=== PATIENT | female | born 1990 | race American Indian/Alaskan Native ===

== ENCOUNTER 2017-07-10 06:18 | Inpatient (IN) | payer MEDICAID ==
[2017-07-07 15:10] VITALS: BMI 23.5
[2017-07-10 07:10] LABS: HEMATOCRIT 37.8 % (34.0-47.0); MEAN CELL VOLUME 89.8 fl (81.0-99.0); MEAN CORPUSCULAR HEMOGLOBIN 29.1 pg (27.0-31.0); MEAN CORPUSCULAR HGB CONC 32.4 g/dL (33.0-37.0); RED CELL DISTRIBUTION WIDTH 13.6 % (11.5-14.5)
[2017-07-10] MEDS ORDERED: Bupivacaine 0.5% Inj(30mL) ONE (07:25)
[2017-07-10] MEDS ORDERED: Lactated Ringer's 1,000 ML IV ONE ×4 (07:30→12:35)
[2017-07-10] MEDS ORDERED: Lidocaine 4% (Laryng-O-Jet) Kit MM ONE (07:51)
[2017-07-10] MEDS ORDERED: Propofol 10 mg/ml Inj (20 ML) ONE (07:51)
[2017-07-10] MEDS ORDERED: Rocuronium 10 mg/ml (5 ml) ONE ×2 (07:51→10:58)
[2017-07-10] MEDS ORDERED: Midazolam 2 MG/2 ML VIAL ONE (07:51)
[2017-07-10] MEDS ORDERED: Succinylcholine 200 mg/10 ml Inj IV ONE (07:51)
[2017-07-10] MEDS ORDERED: Dexamethasone 4 mg/1 ml ONE (09:39)
[2017-07-10] MEDS ORDERED: Sodium Chloride 0.9% 1,000 ML IV ONE ×2 (10:00→11:45)
[2017-07-10] MEDS ORDERED: Desflurane Inhalation Anesthetic Liq (240 ml) ONE (10:37)
[2017-07-10] MEDS ORDERED: Methylene Blue 10 mg/mL(10ml) IV ONE (10:47)
[2017-07-10] MEDS ORDERED: Sevoflurane - Inhalation Anesthetic Liq (250 ml) ONE (11:00)
[2017-07-10] MEDS ORDERED: Neostigmine Methylsulfate 3mg/3ml Syringe IV ONE (12:28)
[2017-07-10] MEDS ORDERED: Naloxone 0.4 mg/ml Inj (Adult) IVP PRN (13:06)
[2017-07-10] MEDS: HYDROmorphone 0.5 mg/0.5 ml ISec IVP PRN ×4 (13:45→14:30)
[2017-07-10] MEDS ORDERED: Lactated Ringer's 1,000 ML IV SCH (14:30)
[2017-07-10] MEDS: ceFAZolin IV 1 gm in Dextrose 1 GM/50 ML BAG IVPB SCH (17:10)
[2017-07-10] MEDS: Lactated Ringer's 1,000 ML IV SCH (20:47)
[2017-07-11] MEDS: ceFAZolin IV 1 gm in Dextrose 1 GM/50 ML BAG IVPB SCH ×3 (00:41→16:29)
[2017-07-11 05:44] LABS: BASO % 0.3 % (0.0-2.0); EOS % 0.1 % (0.0-4.0); HEMATOCRIT 30.4 % (34.0-47.0); LYMPH # 1.4 K/uL (1.0-4.3); LYMPH % 10.9 % (20.0-40.0); MEAN CELL VOLUME 89.8 fl (81.0-99.0); MEAN CORPUSCULAR HEMOGLOBIN 28.7 pg (27.0-31.0); MEAN CORPUSCULAR HGB CONC 31.9 g/dL (33.0-37.0); MEAN PLATELET VOLUME 9.9 fl (7.2-11.7); MONO # 0.9 K/uL (0.0-0.8); MONO % 7.1 % (0.0-10.0); NEUT # 10.7 K/uL (1.8-7.0); NEUT % 81.6 % (50.0-75.0); RED CELL DISTRIBUTION WIDTH 13.2 % (11.5-14.5); WHITE BLOOD COUNT 13.2 K/uL (4.8-10.8)
[2017-07-11 06:10] LABS: BLOOD UREA NITROGEN 3 mg/dl (7-17); CALCIUM 8.4 mg/dL (8.4-10.2); CARBON DIOXIDE 27 mmol/L (22-30); CHLORIDE 106 mmol/L (98-107); GFR AFRICAN-AMERICAN > 60; GLUCOSE,RANDOM 93 mg/dL (65-105); POTASSIUM 3.6 MMOL/L (3.6-5.0); SODIUM 140 mmol/l (132-148)
[2017-07-11] MEDS: Lactated Ringer's 1,000 ML IV SCH (06:35)
--- NOTE | 2017-07-11 07:56 | CP.PCM.PN ---
Subjective - Date & Time of Evaluation Date of Evaluation: 07/11/17 Time of Evaluation: 07:00 - Subjective Subjective: Patient seen and examined this AM. STEVENEO. Patient states that she is having some "gas" pain but denies nausea, vomiting, fevers, or chills. Tolerated liquid diet well last night. 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[employer]) 0 mg IV PRN PRN; Protocol PRN Reason: Pain, moderate (4-7) Last Admin: 07/10/17 21:58 Dose: 6 mg Lactated Ringer's (Lactated Ringer's) 1,000 mls @ 125 mls/hr IV .Q8H [facility]END[facility] TO [facility] Last Admin: 07/11/17 06:35 Dose: 125 mls/hr Cefazolin Sodium/Dextrose (Ancef Iv 1 Gm Duplex) 1 gm in 50 mls @ 50 mls/hr IVPB Q8H [facility] PRN Reason: Protocol Last Admin: 07/11/17 00:41 Dose: 50 mls/hr Lactated Ringer's (Lactated Ringer's) 1,000 mls @ 125 mls/hr IV .Q8H [facility] Ketorolac Tromethamine (Toradol) 30 mg IVP Q6 PRN PRN Reason: Pain, moderate (4-7) Last Admin: 07/11/17 05:46 Dose: 30 mg Naloxone HCl (Narcan) 0.1 mg IVP Q2M PRN PRN Reason: Opiate reversal Ondansetron HCl (Zofran Inj) 4 mg IVP Q8H [facility] Last Admin: 07/11/17 04:00 Dose: Not Given Simethicone (Mylicon Chew Tab) 80 mg PO TID PRN PRN Reason: Flatulence - Labs Labs: 07/11/17 05:15 07/11/17 05:15 - Constitutional Appears: Non-toxic, No Acute Distress - Head Exam Head Exam: ATRAUMATIC, NORMOCEPHALIC - Eye Exam Eye Exam: Normal appearance. absent: Conjunctival injection, Scleral icterus - ENT Exam ENT Exam: Mucous Membranes Moist, Normal Oropharynx - Respiratory Exam Respiratory Exam: NORMAL BREATHING PATTERN. absent: Accessory Muscle Use, Respiratory Distress - Cardiovascular Exam Cardiovascular Exam: RRR - GI/Abdominal Exam GI & Abdominal Exam: Distended (mild), Soft, Tenderness (moderate) Additional comments: Surgical dressings with moderate old sero-sanguinous saturation, no sign of acute bleeding or drainage - Extremities Exam Extremities Exam: absent: Calf Tenderness, Pedal Edema, Tenderness - Neurological Exam Neurological Exam: Alert, Awake, Oriented x3 - Psychiatric Exam Psychiatric exam: Normal Affect, Normal Mood - Skin Skin Exam: Dry, Normal Color, Warm Assessment and Plan - Assessment and Plan (Free Text) Assessment: 27F POD#1 s/p robotic assisted laparoscopic excision of endometriosis converted to open Plan: -Continue CLD until passes gas -Monitor UOP and bowel function -Trend CBC/BMP -Continue IV antibiotics -Switch to non-opioid pain medications -Encourage ambulation and incentive spirometer use -Serial exams -Will continue to follow Discussed with Dr. Ori Browne, PGY2
[2017-07-11] MEDS: Simethicone 80 mg Chewtab PO PRN ×3 (10:08→20:34)
[2017-07-11] MEDS: Potassium Ch 20mEq in D5-1/2NS 1,000 ML IV SCH ×2 (13:06→20:36)
[2017-07-11] MEDS ORDERED: oxyCODONE 5 mg Immediate Release Tab PO STA (14:39)
[2017-07-11] MEDS ORDERED: oxyCODONE 5 mg Immediate Release Tab PO PRN ×2 (17:07→17:10)
[2017-07-12] MEDS: ceFAZolin IV 1 gm in Dextrose 1 GM/50 ML BAG IVPB SCH ×2 (00:30→08:59)
[2017-07-12] MEDS ORDERED: Acetaminophen-Codeine 300/30 mg Tab PO PRN (08:00)
[2017-07-12 08:04] LABS: BASO % 0.3 % (0.0-2.0); EOS # 0.1 K/uL (0.0-0.7); EOS % 1.2 % (0.0-4.0); HEMATOCRIT 26.3 % (34.0-47.0); LYMPH # 0.9 K/uL (1.0-4.3); LYMPH % 11.3 % (20.0-40.0); MEAN CELL VOLUME 89.4 fl (81.0-99.0); MEAN CORPUSCULAR HEMOGLOBIN 29.8 pg (27.0-31.0); MEAN CORPUSCULAR HGB CONC 33.4 g/dL (33.0-37.0); MEAN PLATELET VOLUME 9.7 fl (7.2-11.7); MONO # 0.6 K/uL (0.0-0.8); MONO % 7.2 % (0.0-10.0); NEUT # 6.1 K/uL (1.8-7.0); RED CELL DISTRIBUTION WIDTH 13.4 % (11.5-14.5); WHITE BLOOD COUNT 7.6 K/uL (4.8-10.8)
[2017-07-12 08:12] LABS: CALCIUM 8.8 mg/dL (8.4-10.2); CARBON DIOXIDE 28 mmol/L (22-30); CHLORIDE 107 mmol/L (98-107); GFR AFRICAN-AMERICAN > 60; GLUCOSE,RANDOM 97 mg/dL (65-105); POTASSIUM 3.5 MMOL/L (3.6-5.0); SODIUM 142 mmol/l (132-148)
[2017-07-12 08:16] LABS: BLOOD UREA NITROGEN < 2 mg/dl (7-17)
[2017-07-12] MEDS: Potassium Ch 20mEq in D5-1/2NS 1,000 ML IV SCH ×2 (08:17→18:56)
--- NOTE | 2017-07-12 09:12 | CP.PCM.PN ---
Subjective - Date & Time of Evaluation Date of Evaluation: 07/12/17 Time of Evaluation: 08:00 - Subjective Subjective: Patient seen and examined this AM. STEVENEO. Patient states she still is in significant pain only partly controlled by current pain regimen. Patient states she tolerated CLD well with minimal nausea, denies vomiting, but has not passed gas or had a bowel movement. Patient also reports light vaginal bleeding without clots. She is due for her menstrual cycle this week Objective - Vital Signs/Intake and Output Vital Signs (last 24 hours): Temp Pulse Resp BP Pulse Ox 98.8 F 88 18 130/70 100 07/12/17 08:02 07/12/17 08:02 07/12/17 08:02 07/12/17 08:02 07/12/17 08:02 - Medications Medications: Current Medications Acetaminophen/Codeine Phosphate (Tylenol/Codeine 300 Mg/30 Mg) 1 tab PO Q4 PRN PRN Reason: Pain, severe (8-10) Last Admin: 07/12/17 09:00 Dose: 1 tab Famotidine (Pepcid) 40 mg PO DAILY [facility] Last Admin: 07/12/17 08:58 Dose: 40 mg Potassium Chloride/Dextrose/Sod Cl (Potassium Chl 20 Meq In D5-1/2ns) 1,000 mls @ 100 mls/hr IV .Q10H [facility] Stop: 07/12/17 11:40 Last Admin: 07/12/17 08:17 Dose: 100 mls/hr Ketorolac Tromethamine (Toradol) 30 mg IVP Q6H [facility] Last Admin: 07/12/17 03:19 Dose: 30 mg Ondansetron HCl (Zofran Inj) 4 mg IVP Q8H [facility] Last Admin: 07/11/17 20:32 Dose: Not Given Simethicone (Mylicon Chew Tab) 80 mg PO TID [facility] - Labs Labs: 07/12/17 07:45 07/12/17 07:00 - Constitutional Appears: Non-toxic, No Acute Distress - Head Exam Head Exam: ATRAUMATIC, NORMOCEPHALIC - Eye Exam Eye Exam: Normal appearance. absent: Conjunctival injection, Scleral icterus - ENT Exam ENT Exam: Mucous Membranes Moist, Normal Oropharynx - Respiratory Exam Respiratory Exam: NORMAL BREATHING PATTERN. absent: Accessory Muscle Use, Respiratory Distress - Cardiovascular Exam Cardiovascular Exam: RRR - GI/Abdominal Exam GI & Abdominal Exam: Distended (moderate), Soft, Tenderness (moderate tenderness improved since yesterday). absent: Guarding, Rigid Additional comments: Surgical dressings with no new saturation, dry and intact - Extremities Exam Extremities Exam: absent: Calf Tenderness, Pedal Edema, Tenderness - Neurological Exam Neurological Exam: Alert, Awake, Oriented x3 - Psychiatric Exam Psychiatric exam: Normal Affect, Normal Mood - Skin Skin Exam: Dry, Normal Color, Warm Assessment and Plan - Assessment and Plan (Free Text) Assessment: 27F POD#2 s/p robotic assisted laparoscopic excision of endometriosis converted to open Plan: -Continue CLD until passes gas -Monitor UOP and bowel function -Trend CBC/BMP -D/C IV abx -Continue PRN pain medication as needed -Encourage ambulation and incentive spirometer use -Serial exams -Continue to hold anticoagulation d/t drop in hemoglobin and vaginal bleeding -Will continue to follow Discussed with Dr. Ori Browne, PGY2
[2017-07-12] MEDS: Simethicone 80 mg Chewtab PO SCH ×3 (09:28→17:34)
[2017-07-12] MEDS ORDERED: Potassium Chloride 20 mEq ER Tab PO ONE (09:30)
[2017-07-12] MEDS ORDERED: Potassium Ch 20mEq in D5-1/2NS 1,000 ML IV SCH (11:41)
[2017-07-13] MEDS: Potassium Ch 20mEq in D5-1/2NS 1,000 ML IV SCH (05:33)
[2017-07-13 07:20] LABS: BASO % 0.3 % (0.0-2.0); EOS # 0.2 K/uL (0.0-0.7); EOS % 2.4 % (0.0-4.0); HEMATOCRIT 25.7 % (34.0-47.0); LYMPH # 1.1 K/uL (1.0-4.3); LYMPH % 17.2 % (20.0-40.0); MEAN CELL VOLUME 90.6 fl (81.0-99.0); MEAN CORPUSCULAR HEMOGLOBIN 29.4 pg (27.0-31.0); MEAN CORPUSCULAR HGB CONC 32.5 g/dL (33.0-37.0); MEAN PLATELET VOLUME 9.7 fl (7.2-11.7); MONO # 0.4 K/uL (0.0-0.8); MONO % 6.6 % (0.0-10.0); NEUT # 4.9 K/uL (1.8-7.0); NEUT % 73.5 % (50.0-75.0); RED CELL DISTRIBUTION WIDTH 13.3 % (11.5-14.5); WHITE BLOOD COUNT 6.6 K/uL (4.8-10.8)
[2017-07-13 07:30] LABS: CALCIUM 8.9 mg/dL (8.4-10.2); CARBON DIOXIDE 28 mmol/L (22-30); CHLORIDE 107 mmol/L (98-107); GFR AFRICAN-AMERICAN > 60; GLUCOSE,RANDOM 97 mg/dL (65-105); POTASSIUM 3.8 MMOL/L (3.6-5.0); SODIUM 141 mmol/l (132-148)
[2017-07-13 07:31] LABS: BLOOD UREA NITROGEN < 2 mg/dl (7-17)
--- NOTE | 2017-07-13 08:35 | CP.PCM.PN ---
Subjective - Date & Time of Evaluation Date of Evaluation: 07/13/17 Time of Evaluation: 08:33 - Subjective Subjective: Surgery: Dr. Rehman Pt seen and examined. Resting comfortably in bed. Pain controlled. Pt is ambulating w. out difficulty. She is tolerating CLD. No N/V. She does feel bloated and has not passed flatus or BM. She would like to eat more Objective - Vital Signs/Intake and Output Vital Signs (last 24 hours): Temp Pulse Resp BP Pulse Ox 98.1 F 78 20 115/66 100 07/13/17 05:00 07/13/17 05:00 07/13/17 05:00 07/13/17 05:00 07/13/17 05:00 Intake and Output: 07/13/17 07/13/17 06:59 18:59 Intake Total 1518 Balance 1518 - Medications Medications: Current Medications Acetaminophen/Codeine Phosphate (Tylenol/Codeine 300 Mg/30 Mg) 1 tab PO Q4 PRN PRN Reason: Pain, severe (8-10) Last Admin: 07/12/17 09:00 Dose: 1 tab Bisacodyl (Dulcolax) 5 mg PO DAILY PRN PRN Reason: Constipation Famotidine (Pepcid) 40 mg PO DAILY [facility] Last Admin: 07/12/17 08:58 Dose: 40 mg Potassium Chloride/Dextrose/Sod Cl (Potassium Chl 20 Meq In D5-1/2ns) 1,000 mls @ 100 mls/hr IV .Q10H [facility] Stop: 07/14/17 11:47 Last Admin: 07/13/17 05:33 Dose: 100 mls/hr Ketorolac Tromethamine (Toradol) 30 mg IVP Q6H [facility] Last Admin: 07/13/17 03:56 Dose: 30 mg Ondansetron HCl (Zofran Inj) 4 mg IVP Q8H [facility] Last Admin: 07/13/17 03:56 Dose: 4 mg Simethicone (Mylicon Chew Tab) 80 mg PO TID [facility] Last Admin: 07/12/17 17:34 Dose: 80 mg - Labs Labs: 07/13/17 07:20 07/13/17 06:40 - Constitutional Appears: Non-toxic, No Acute Distress - Head Exam Head Exam: ATRAUMATIC, NORMOCEPHALIC - Eye Exam Eye Exam: EOMI. absent: Scleral icterus - ENT Exam ENT Exam: Mucous Membranes Moist - Neck Exam Neck Exam: Full ROM - Respiratory Exam Respiratory Exam: NORMAL BREATHING PATTERN. absent: Accessory Muscle Use, Respiratory Distress - GI/Abdominal Exam GI & Abdominal Exam: Soft. absent: Distended, Firm, Guarding, Rigid, Tenderness , Rebound Additional comments: incision C/D/I - Extremities Exam Extremities Exam: absent: Calf Tenderness, Pedal Edema - Neurological Exam Neurological Exam: Alert, Awake, Oriented x3 - Psychiatric Exam Psychiatric exam: Normal Affect, Normal Mood Assessment and Plan - Assessment and Plan (Free Text) Assessment: 27F POD#3 s/p robotic assisted laparoscopic excision of endometriosis converted to open -c/w CLD -encourage ambulation -will give dulcolax -once pt has BM or passes flatus, diet will be advanced -AM labs pending -d/w attending Marlene PGY3
[2017-07-13] MEDS: Bisacodyl 5mg EC Tab PO PRN (09:06)
[2017-07-13] MEDS: Simethicone 80 mg Chewtab PO SCH ×3 (09:25→16:38)
[2017-07-14 00:22] VITALS: O2SAT 100
[2017-07-14 05:56] LABS: BASO % 0.4 % (0.0-2.0); EOS # 0.2 K/uL (0.0-0.7); EOS % 3.9 % (0.0-4.0); HEMATOCRIT 26.5 % (34.0-47.0); LYMPH # 1.3 K/uL (1.0-4.3); LYMPH % 20.9 % (20.0-40.0); MEAN CELL VOLUME 89.4 fl (81.0-99.0); MEAN CORPUSCULAR HEMOGLOBIN 29.5 pg (27.0-31.0); MEAN PLATELET VOLUME 9.4 fl (7.2-11.7); MONO # 0.5 K/uL (0.0-0.8); MONO % 7.2 % (0.0-10.0); NEUT # 4.3 K/uL (1.8-7.0); NEUT % 67.6 % (50.0-75.0); RED CELL DISTRIBUTION WIDTH 13.2 % (11.5-14.5); WHITE BLOOD COUNT 6.4 K/uL (4.8-10.8)
[2017-07-14 06:27] LABS: BLOOD UREA NITROGEN 8 mg/dl (7-17); CALCIUM 9.2 mg/dL (8.4-10.2); CARBON DIOXIDE 29 mmol/L (22-30); CHLORIDE 106 mmol/L (98-107); GFR AFRICAN-AMERICAN > 60; GLUCOSE,RANDOM 91 mg/dL (65-105); POTASSIUM 3.6 MMOL/L (3.6-5.0); SODIUM 143 mmol/l (132-148)
--- NOTE | 2017-07-14 08:03 | CP.PCM.DIS ---
Provider - Provider Date of Admission: 07/10/17 14:20 Attending physician: Nasim Meza Primary care physician: Nasim Meza Consults: Dr. William Rehman, General Surgery Time Spent in preparation of Discharge (in minutes): 45 Diagnosis - Discharge Diagnosis (1) S/P robot-assisted surgical procedure Status: Acute Priority: High (2) Endometriosis Status: Chronic Priority: High Hospital Course - Lab Results Lab Results: Most Recent Lab Values WBC 6.4 K/uL (4.8-10.8) 07/14/17 05:40 RBC 2.96 Mil/uL (3.80-5.20) L 07/14/17 05:40 Hgb 8.7 g/dL (12.0-16.0) L 07/14/17 05:40 Hct 26.5 % (34.0-47.0) L 07/14/17 05:40 MCV 89.4 fl (81.0-99.0) 07/14/17 05:40 MCH 29.5 pg (27.0-31.0) 07/14/17 05:40 MCHC 33.0 g/dL (33.0-37.0) 07/14/17 05:40 RDW 13.2 % (11.5-14.5) 07/14/17 05:40 Plt Count 166 K/uL (130-400) 07/14/17 05:40 MPV 9.4 fl (7.2-11.7) 07/14/17 05:40 Neut % (Auto) 67.6 % (50.0-75.0) 07/14/17 05:40 Lymph % (Auto) 20.9 % (20.0-40.0) 07/14/17 05:40 Vilas % (Auto) 7.2 % (0.0-10.0) 07/14/17 05:40 Eos % (Auto) 3.9 % (0.0-4.0) 07/14/17 05:40 Baso % (Auto) 0.4 % (0.0-2.0) 07/14/17 05:40 Neut # 4.3 K/uL (1.8-7.0) 07/14/17 05:40 Lymph # 1.3 K/uL (1.0-4.3) 07/14/17 05:40 Vilas # 0.5 K/uL (0.0-0.8) 07/14/17 05:40 Eos # 0.2 K/uL (0.0-0.7) 07/14/17 05:40 Baso # 0.0 K/uL (0.0-0.2) 07/14/17 05:40 Sodium 143 mmol/l (132-148) 07/14/17 05:40 Potassium 3.6 MMOL/L (3.6-5.0) 07/14/17 05:40 Chloride 106 mmol/L (98-107) 07/14/17 05:40 Carbon Dioxide 29 mmol/L (22-30) 07/14/17 05:40 Anion Gap 12 (10-20) 07/14/17 05:40 BUN 8 mg/dl (7-17) 07/14/17 05:40 Creatinine 0.7 mg/dL (0.7-1.2) 07/14/17 05:40 Est GFR ( Amer) > 60 07/14/17 05:40 Est GFR (Non-Af Amer) > 60 07/14/17 05:40 Random Glucose 91 mg/dL (65-105) 07/14/17 05:40 Calcium 9.2 mg/dL (8.4-10.2) 07/14/17 05:40 Blood Type A POSITIVE 07/10/17 07:06 Blood Type Confirm A POSITIVE 07/10/17 08:00 Antibody Screen Negative 07/10/17 07:06 Crossmatch See Detail 07/10/17 07:06 BBK History Checked No verified bt 07/10/17 07:06 - Hospital Course Hospital Course: Patient is a 27F with endometriosis who underwent a robot assisted laparoscopic excision of endometrioma that was converted to open. Patient tolerated the surgery, was admitted post-operatively, and recovered well. On post-op day #4, patient was clinically stable, passing gas, tolerating regular diet, tolerating pain on PO pain medication, and ambulating well. Plans for discharge with outpatient follow up and PO pain medication was discussed with the patient and the patient's family, who understood and agreed to plan. Patient was discharged to home. For full hospital course, see chart. Discharge Exam - Head Exam Head Exam: ATRAUMATIC, NORMOCEPHALIC - Eye Exam Eye Exam: Normal appearance. absent: Conjunctival injection, Scleral icterus - ENT Exam ENT Exam: Mucous Membranes Moist, Normal Oropharynx - Respiratory Exam Respiratory Exam: NORMAL BREATHING PATTERN. absent: Accessory Muscle Use, Respiratory Distress - Cardiovascular Exam Cardiovascular Exam: RRR - GI/Abdominal Exam GI & Abdominal Exam: Tenderness (RLQ and charissa-incisional). absent: Distended - Extremities Exam Extremities exam: pedal pulses present Additional comments: no pedal edema or calf tenderness - Neurological Exam Neurological exam: Alert, Oriented x3 - Psychiatric Exam Psychiatric exam: Normal Affect, Normal Mood - Skin Skin Exam: Dry, Intact, Normal Color, Warm Discharge Plan - Follow Up Plan Condition: GOOD Disposition: HOME/ ROUTINE Patient education suggested?: Yes Instructions: Endometriosis (DC) Additional Instructions: Call Dr. Meza's office to schedule a follow up appointment You may resume normal daily activities and diet, but do not lift >10pounds for 6 weeks of until cleared to do so by Dr. Meza Take colace as needed for constipation Some of your incisions are covered in dermabond which will dissolve on its own. The naomi will be removed in 7-10 days. You may shower but do not soak the incisions in water, such as baths or swimming pools, for [address] Meaz's office or go to the ER for severe nausea and vomiting, bleeding or discharge from the incisions, or fever >100.4, or any other concerning symptoms. Referrals: Nasim Meza [Primary Care Provider] - Clinical Quality Measures - CQM - Stroke Antithrombotic Prescribed: Medical Contraindication Present Contranindication/Reason for not providing: Risk for Bleeding
[2017-07-14 08:59] VITALS: BP 132/68; PULSE 90; RESP 16; TEMP 99
[2017-07-14] MEDS: Bisacodyl 5mg EC Tab PO PRN (09:00)
[2017-07-14] MEDS: Simethicone 80 mg Chewtab PO SCH (09:01)
--- NOTE | 2017-07-17 15:14 | OP ---
PROCEDURE DATE: 07/10/2017 PREOPERATIVE DIAGNOSES: severe pelvic pain endometriosis POSTOPERATIVE DIAGNOSES: Severe pelvic and abdominal pain pelvic adhesions. Pelvic mass , pelvic endometriosis PROCEDURE PERFORMED: Robotic laparoscopy with lysis of adhesions followed by converted to laparotomy, lysis of adhesions, appendectomy, excision of endometriosis and excision of uterine adenomyosis. SURGEON: Nasim Meza M.D. TRAY DRIER OPERATOR: William Rehman M.D. TYPE OF ANESTHESIA: General endotracheal. ESTIMATED BLOOD LOSS: 500 mL COMPLICATIONS: None. INDICATION FOR THE PROCEDURE: The patient is a 27-year-old with a very long history over 4 years of extensive pelvic pain and gastrointestinal symptoms and abdominal pain who had been thoroughly evaluated for the presence of endometriosis. She also had an MRI, which revealed presence of extensive pelvic adhesion and endometriosis as well as a posterior uterine adenomyoma. Prior to the surgery, the patient was counseled with regards to risks and benefits of the procedure. She was counseled to the potential of having the laparotomy given the extensiveness of her disease and to the risks and benefits of having excision of the endometriosis and the adenomyosis from the uterus. After adequate counseling was obtained, the patient signed the consent and was taken to the OR. DESCRIPTION OF PROCEDURE: After adequate anesthesia was obtained, the patient was placed in a dorsal lithotomy position. She was prepped and draped. The surgeons were gowned and gloved. Cystoscopy was performed and both ureters were identified. Both ureters were cannulated and IC-Green were injected in each ureter for identification of the ureters. At this point, attention was abdominally where an open laparoscopy was performed. Three trocars were placed, right upper quadrant, left upper quadrant, umbilical and left mid quadrant. At this point, the Da Tony robot was docked and the procedure was started. The ureter appeared to be enlarged in size. There were extensive pelvic adhesion. The appendix was pulled in deeply into posterior adhesions. The ureter was adherent to the sacral area with thick lesions involving most of the bowel. An initial dissection was performed dissecting the ureter on the left hand side, but given the complexity of the case and the necessity to perform a full excision in this patient with such severe symptoms, it was decided to covert the case to laparotomy. At this point, the abdomen was insufflated. The surgeons regowned and regloved and a laparotomy tray was prepared. The patient had given prior consent to moving forward to a laparotomy prior to the surgery. At this point, a vertical incision was made from the umbilicus down to pubic symphysis. This was carried down all the way to the fascia and the fascia was then incised longitudinally from the umbilicus all the way down to the pubic symphysis. The peritoneum was the entered and the incision was extended superiorly and inferiorly. A Vanessa retractor was placed and the abdomen was visualized. There appeared to be some significant adhesions involving the intestine and the posterior aspect of the uterus. These were dissected. At this point, the appendix was pulled in on the right hand side and was dissected off. The mesoappendix was identified and coagulated and a purse-string suture was performed utilizing 3-0 Vicryl and the appendix was removed. A second purse-string was also performed to isolate it. At this point, attention was on the posterior aspect of the uterus where the right ureterolysis was performed identifying the ureter all the way down from the pelvic brim, all the way down to the ovarian fossa. At this point, the ureter was elevated and the bowel was progressively dissected off from the posterior aspect of the uterus. Areas of endometriosis on the surface of the bowel, the colorectum were excised superficially with a shaving technique without entering the intestinal lumen. Small defects in the serosa of the bowel were reapproximating utilizing suture of 3-0 Vicryl. At this point, an extensive dissection was performed of thick fibrotic endometriosis, especially in the area of sacral promontory where the posterior aspect of the uterus was attached. The full excision was performed preserving both ureters as well as presacral nerves and presacral vessels. After the full dissection was performed, attention was in the posterior aspect of the uterus where a large adenomyoma was identified which had already prior been described in the MRI. Therefore utilizing electrocautery, a V-shaped excision was performed excising a large area of adenomyosis from the posterior aspect of the uterus. This was a quite extensive dissection, but preserved completely the uterine seroma and the uterine cavity was not entered. At this point, an additional area of endometriosis on the rectal wall was identified and it was also excised. The defect was closed with 3-0 Vicryl. The incision did not involve entering the serosa or the muscle. At this point, it was checked for hemostasis and appeared to be excellent. A small area of bleeding deep into the right perirectal space was controlled utilizing a small amount of Surgicel. At this point, the hemostasis appeared to be good, so the retractor was removed. The bowel was fully run to make sure it had integrity. The incision was closed with running suture of 0 PDS utilizing 2 separate sutures starting at each angles. The skin was closed utilizing naomi. At the end of the procedure, all tapes and instruments counts were correct. The patient tolerated the procedure well, was taken to recovery room in excellent condition. Nasim Meza MD [id number]
== END 2017-07-14 11:29 | disposition home or self-care (01) | DRG 149 ==
LOC: H.OPSURG 06:18 → H.PEDS 14:20
PROVIDERS: ADMIT Obstetrics & Gynecology Reproductive Endocrinology; ATTEND Obstetrics & Gynecology Reproductive Endocrinology
PROC: 0DNW0ZZ Release Peritoneum, Open Approach (ICD-10-PCS; 2017-07-10)
PROC: 0DTJ0ZZ Resection of Appendix, Open Approach (ICD-10-PCS; 2017-07-10)
PROC: 0DBP0ZZ Excision of Rectum, Open Approach (ICD-10-PCS; 2017-07-10)
PROC: 0UB90ZZ Excision of Uterus, Open Approach (ICD-10-PCS; principal; 2017-07-10 08:30)
PROC: 0DBN0ZZ Excision of Sigmoid Colon, Open Approach (ICD-10-PCS; 2017-07-10 08:30)
DX: N80.5 Endometriosis of intestine (principal); D26.9 Other benign neoplasm of uterus, unspecified; N80.0 Endometriosis of uterus; N73.6 Female pelvic peritoneal adhesions (postinfective); Z53.31 Laparoscopic surgical procedure converted to open procedure; N94.6 Dysmenorrhea, unspecified; N94.10 Unspecified dyspareunia